=== PATIENT | female | born 1975 ===

== ENCOUNTER 2025-06-09 10:45 | Inpatient (IN) | payer OTHER ==
[~2025-06-09] VITALS: Ht 172.7 cm; Wt 75.7 kg
[2025-06-09] MEDS ORDERED: RITUXAN10 MG/1 ML IV (11:36)
[2025-06-09] MEDS ORDERED: SYNTHROID100 MCG PO (11:36)
[2025-06-09] MEDS ORDERED: [UNRECOGNIZED DRUG - OTHER] (11:37)
[2025-06-09 11:40] VITALS: BP 114/79
[2025-06-14] MEDS ORDERED: DIBUCAINE 30 GM TUBE RECTAL ONE (10:00)
[2025-06-14] MEDS ORDERED: LIDOCAINE HCL 1%/EPINEPHRINE 20ML VIAL IJ ONE (10:00)
[2025-06-14] MEDS ORDERED: BUPIVACAINE HCL/PF 0.25% 30ML VIAL InF ONE (10:00)
[2025-06-14] MEDS ORDERED: HEMOSTATIC MATRIX 1 KIT KIT TOP ONE (10:00)
[2025-06-14] MEDS ORDERED: POVIDONE-IODINE 118 ML BOTT TOP ONE (10:00)
[2025-06-14] MEDS ORDERED: CEFTRIAXONE SODIUM 2,000 MG VIAL IV ONE (10:00)
[2025-06-14] MEDS ORDERED: METRONIDAZOLE/SODIUM CHLORIDE 500 MG/100 ML PIGGYBACK IV ONE (10:00)
[2025-06-14] MEDS ORDERED: OxyCODONE HCL 5 MG TABLET (ROXICODONE) PO PRN (11:15)
[2025-06-14] MEDS ORDERED: RINGERS SOLUTION,LACTATED 1,000 ML IV SCH (11:15)
[2025-06-14] MEDS ORDERED: MORPHINE SULFATE 4 MG/ML CARTRIDGE IV PRN (11:15)
[2025-06-14] MEDS ORDERED: ONDANSETRON HCL 2 MG/ML VIAL IV PRN (11:15)
[2025-06-14] MEDS ORDERED: HYOSCYAMINE SULFATE 0.125 MG TAB.SUBL SL SCH (13:00)
[2025-06-14] MEDS ORDERED: ACETAMINOPHEN 500 MG GEL..CAP PO SCH (14:00)
[2025-06-14 14:49] VITALS: BP 125/79; O2SAT 98
[2025-06-14 16:00] VITALS: BP 87/52; O2SAT 98
[2025-06-14] MEDS ORDERED: CELECOXIB200 MG PO (16:24)
[2025-06-14] MEDS ORDERED: INTESTINEX680 M1 PO (16:24)
[2025-06-14] MEDS ORDERED: NEURONTIN300 MG PO (16:25)
[2025-06-14] MEDS ORDERED: METOCLOPRAMIDE HCL 5 MG/ML VIAL IV SCH (17:00)
[2025-06-14] MEDS ORDERED: KETOROLAC TROMETHAMINE 30 MG VIAL IV SCH (17:00)
[2025-06-14] MEDS ORDERED: GABAPENTIN 300 MG CAPSULE PO SCH (17:00)
[2025-06-14] MEDS ORDERED: FAMOTIDINE/PF 20 MG/2 ML VIAL IV PUSH SCH (21:00)
[2025-06-15 01:40] VITALS: BP 110/64; O2SAT 100
[2025-06-15 06:16] LABS: BASO % 0.2 % (0.1-1.2); EOS # 0.00 (0.04-0.54); EOS % 0.0 % (0.7-7.0); LYMPH # 0.57 (1.18-3.74); LYMPH % 9.4 % (19.3-53.1); MEAN PLATELET VOLUME 10.20 fl (9.4-12.4); MONO # 0.58 (0.24-0.82); MONO % 9.5 % (4.7-12.5); NEUT # 4.90 (1.56-6.13); NEUT % 80.6 % (34.0-71.1); RED CELL DISTRIBUTION WIDTH 13.2 % (11.6-14.4)
[2025-06-15 07:11] LABS: BUN CREA RATIO 27.0 (7.0-25.0); CREATININE SERUM 0.66 mg/dL (0.55-1.02); GFR 94.42; GLUCOSE FASTING 77.0 mg/dL (65-100); OSMOLALITY SERUM 288.0 MOSM/KG (275-295)
[2025-06-15] MEDS ORDERED: PERCOCET 5-3251 EACH PO (07:59)
[2025-06-15 08:00] VITALS: BP 90/60; O2SAT 96
[2025-06-15] MEDS ORDERED: LACTOBACILLUS ACIDOPHILUS 1 CAP CAP PO SCH (09:00)
[2025-06-15] MEDS ORDERED: ENOXAPARIN SODIUM 40 MG/0.4 ML SYRINGE SUBCUTANEO SCH (17:00)
[2025-06-16] MEDS ORDERED: ENOXAPARIN SODIUM 40 MG/0.4 ML SYRINGE SUBCUTANEO SCH (09:00)
== END 2025-06-15 08:57 | disposition home or self-care (01) | DRG 748 ==
LOC: SURH 06-14 05:54 → O/R 06-14 05:54 → SURH 06-14 07:00
PROVIDERS: ADMIT Surgery; ATTEND Surgery
PROC: 06BY0ZC Excision of Hemorrhoidal Plexus, Open Approach (ICD-10-PCS; 2025-06-14)
PROC: 3E0T3BZ Introduction of Anesthetic Agent into Peripheral Nerves and Plexi, Percutaneous Approach (ICD-10-PCS; 2025-06-14)
PROC: 0JQC0ZZ Repair Pelvic Region Subcutaneous Tissue and Fascia, Open Approach (ICD-10-PCS; principal; 2025-06-14 07:00)
DX: N81.6 Rectocele (principal); K64.8 Other hemorrhoids